=== PATIENT | female | born 1960 | race Caucasian/White ===

== ENCOUNTER 2017-05-05 13:29 | Emergency (ER) | payer OTHER ==
[~2017-05-05] VITALS: Ht 154.9 cm; Wt 74.3 kg
[2017-05-05 13:44] VITALS: BP 139/83; PULSE 75; RESP 16; TEMP 98.2; O2SAT 97
--- NOTE | 2017-05-05 14:19 | PD ---
HPI Chief Complaint: Laceration/Skin Injury Time Seen by Provider: 14:01 Travel History International Travel<30 days: No Contact w/Intl Traveler<30days: No Traveled to known affect area: No History of Present Illness HPI 56 old female here with laceration to the left index finger. Injury occurred while she was using a mandolin vegetable slicer cutting her finger prior to arrival. She has pain for the laceration. Symptom severity moderate. No aggravating or alleviating factors. Tetanus Immunization unknown. PFSH Past Medical History Medical History: Denies Significant Hx Tetanus Vaccination: > 5 Years ?: Not LMP: MENOPAUSAL Past Surgical History Surgical History: No Previous Surgery Social History Alcohol Use: No Tobacco Use: No Substance Use: No Allergies-Medications (Allergen,Severity, Reaction): Coded Allergies: No Known Allergies (Unverified , 05/05/17) Reported Meds & Prescriptions Reported Meds & Active Scripts Active No Active Prescriptions or Reported Medications Review of Systems Except as stated in HPI: all other systems reviewed are Neg Physical Exam Narrative GENERAL: Alert female well-appearing. SKIN: Warm and dry. 2.5 CM laceration left index finger HEAD: Normocephalic. EYES: No scleral icterus. No injection or drainage. NECK: Supple, trachea midline. No JVD or lymphadenopathy. MUSCULOSKELETAL: No cyanosis, or edema. Left index finger 2.5CM laceration to the distal lateral aspect. No tendon injury. Patient is able to fully flex and extend the digit against resistance. Brisk cap refill. Data Data Last Documented VS Vital Signs Date Time Temp Pulse Resp B/P (MAP) Pulse Ox O2 Delivery O2 Flow Rate FiO2 05/05/17 13:44 98.2 75 16 139/83 (101) 97 MDM Medical Decision Making Medical Screen Exam Complete: Yes Emergency Medical Condition: Yes Differential Diagnosis Laceration, tendon laceration, ligament injury Narrative Course 56-year-old female with a laceration to left index finger. The digit is neurovascularly intact. No tendon injury. Laceration repair performed. Patient tolerated procedure well Procedures Procedure Narrative LACERATION LOCATION: Left index finger LENGTH: 2.5 cm NUMBER OF STITCHES/KO: 4 REPAIR: The area of the laceration was prepped with Betadine and sterilely draped. Digital block performed using 1% lidocaine. The wound was copiously irrigated and explored without evidence of foreign body, tendon injury or neurovascular injury. The wound was closed using 4-0 Prolene. This was a single layer repair. A sterile dressing was applied. The patient was advised to keep the dressing clean and dry. Patient tolerated the procedure well. Diagnosis Primary Impression: Finger laceration Qualified Codes: S61.211A - Laceration without foreign body of left index finger without damage to nail, initial encounter Referrals: Primary Care Physician Additional Instructions: Do not submerge the wound in water. You may wash the area with soap and water daily. Keep the area clean and dry. Sutures need to be removed in 7-10 days. Scripts No Active Prescriptions or Reported Meds Disposition: 01 DISCHARGE HOME Condition: Stable Nora Dawson May 05, 2017 14:19
[2017-05-05] MEDS ORDERED: TETANUS/DIPHTHERIA TOXOID ADULT 0.5 ML VIAL IM ONE (14:30)
== END 2017-05-05 15:11 | disposition home or self-care (01) ==
LOC: PHEFT 13:29
DX: S61.211A Laceration without foreign body of left index finger without damage to nail, initial encounter (principal); Z23 Encounter for immunization; W45.8XXA Other foreign body or object entering through skin, initial encounter
CPT/HCPCS: 12001; 90471; 90714